=== PATIENT | male | born 1970 | race Caucasian/White ===

== ENCOUNTER 2019-04-03 09:42 | Day surgery (SDC) | payer MEDICARE, MEDICAID ==
[~2019-04-03 09:42] MED LIST: Lactated Ringers 1,000 ML IV SCH; Sodium Chloride 0.9% 10 ML Syringe FLUSH PRN
[2019-04-03] MEDS ORDERED: Propofol 200 MG/20 ML SDV ONE (10:59)
[2019-04-03] MEDS ORDERED: fentaNYL 100 MCG/2 ML SDV ONE (11:00)
[2019-04-03] MEDS ORDERED: ePHEDrine 50 MG/ML SDV ONE (12:19)
--- NOTE | 2019-04-03 15:15 | OR ---
PREOPERATIVE DIAGNOSIS: Screening colonoscopy. POSTOPERATIVE DIAGNOSIS: Normal colonoscopic exam with long tortuous colon. PROCEDURE PROPOSED: Total flexible colonoscopy. PROCEDURE DONE: Total flexible colonoscopy. INDICATION: This 48-year-old gentleman referred for screening colonoscopy. He denies any family history of colon pathology and he is not having any worrisome symptoms. TECHNIQUE: The patient was brought to the endoscopy suite, placed in left lateral decubitus position. He was sedated per OIL INSPECTOR with propofol. The flexible video colonoscope was then passed transanally, and under visualization, advanced to the cecum. He had a rather long tortuous colon using the entire length of the colonoscope and requiring multiple attempts to get into the scope position into the cecal area, which was obtained, and an examination then revealed a normal ascending, transverse, descending colon. The sigmoid colon revealed an occasional diverticular orifice and the rectum was normal. There was no evidence of any polyps or colitis or other abnormalities and the scope was then withdrawn. He tolerated the procedure well. FINAL IMPRESSION: 1. Normal colonoscopic exam with long redundant colon. 2. Minimal diverticulosis. PLAN: The patient is reassured. I felt he could wait 10 years before he needs a repeat colonoscopy. SCM: 04/03/2019 13:17:39 MODL: 04/03/2019 15:03:59 /[id number]
== END 2019-04-03 13:40 | disposition home or self-care (01) ==
LOC: VM.SDS 09:42
PROVIDERS: ATTEND Surgery
DX: Z12.11 Encounter for screening for malignant neoplasm of colon (principal); K57.30 Diverticulosis of large intestine without perforation or abscess without bleeding; K21.9 Gastro-esophageal reflux disease without esophagitis; K63.89 Other specified diseases of intestine; I48.0 Paroxysmal atrial fibrillation; E78.00 Pure hypercholesterolemia, unspecified; E78.5 Hyperlipidemia, unspecified; E87.1 Hypo-osmolality and hyponatremia; D64.9 Anemia, unspecified; F01.51 Vascular dementia, unspecified severity, with behavioral disturbance; Z87.891 Personal history of nicotine dependence; Z95.0 Presence of cardiac pacemaker; Z79.899 Other long term (current) drug therapy
CPT/HCPCS: 00812; G0121; J2704; J3010; J7120

== ENCOUNTER 2020-11-23 08:08 | Emergency (ER) | payer MEDICARE, MEDICAID ==
[2020-11-23] MEDS ORDERED: Sodium Chloride 0.9% 10 ML Syringe FLUSH PRN (08:24)
[2020-11-23] MEDS ORDERED: Lactated Ringers 1,000 ML IV SCH (08:30)
[2020-11-23 08:49] LABS: BARBITURATE SCREEN,URINE NEGATIVE (NEGATIVE); BENZODIAZEPINES SCREEN,URINE NEGATIVE (NEGATIVE); EDDP,URINE SCREEN NEGATIVE (NEGATIVE); METHAMPHETAMINE SCREEN, URINE NEGATIVE (NEGATIVE); TCA SCREEN,URINE NEGATIVE (NEGATIVE); THC SCREEN,URINE 50 NG/ML NEGATIVE (NEGATIVE)
[2020-11-23] MEDS ORDERED: Rocuronium 50 MG/5 ML Vial ONE (08:53)
[2020-11-23 08:55] LABS: PTT,PARTIAL THROMBOPLSTIN TIME 29.3 SEC (25.6-32.8)
[2020-11-23 08:56] LABS: ANION GAP 12.2 mmol/L (10-20); CHLORIDE,CL 96 mmol/L (98-107); SODIUM,NA 135 mmol/L (136-145)
--- NOTE | 2020-11-23 09:16 | CR ---
[id number] RAD/RAD Chest PA or AP 1V EXAM: RAD Chest PA or AP 1V INDICATION: RESP ARREST, INTUBATED. COMPARISON: None. DISCUSSION: Endotracheal tube with tip approximately 3 cm above the alexi. Left chest wall cardiac conduction device. Cardiomediastinal silhouette is normal in size and contour. Right perihilar and basilar pulmonary ulcer. No pneumothorax or pleural effusion. IMPRESSION: As above. Jovany Anna DO 11/23/20 0914 Thank you for allowing us to participate in the care of your patient.
--- NOTE | 2020-11-23 10:03 | EDM.PDOC ---
ED HPI GENERAL MEDICAL PROBLEM - General Stated Complaint: CODE Time Seen by Provider: 11/23/20 08:08 Source of Information: Reports: Patient History Limitations: Reports: Altered Mental Status, Respiratory Distress - History of Present Illness INITIAL COMMENTS - FREE TEXT/NARRATIVE: Pt. presents to ER via EMS. 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 Staff states that the patient made a "howling" noise and then collapsed on the floor. The fall was unwitnessed. Pt. was experiencing agonal breathing, and rescue breathing was started. He was actively experiencing grand mal seizure activity. EMS was dispatched. They found the patient to be agonally breathing and was intubated. Pt. was given a total of 12.5mg of valium during transport but was still seizing. Staff states that the patient was up walking around prior to the incident and offered no complaint. Did not complain of headache at that time. Pt. 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 He is on depakote 250mg in the AM and 500mg QHS, as well as trileptal 150mg BID. Staff states that he has not had any seizure activity in the approx. 7 years he has been a resident at the half-way. Onset: Today Onset Date: 11/23/20 Location: Reports: Generalized - Related Data Allergies Allergy/AdvReac Type Severity Reaction Status Date / Time No Known Allergies Allergy Verified 02/06/19 14:46 Home Meds: Home Meds Amiodarone [Cordarone] 200 mg PO DAILY 02/06/19 [History] Divalproex Sodium 250 mg PO ASDIRECTED 02/06/19 [History] Docusate Sodium [Colace] 100 mg PO BID 02/06/19 [History] Famotidine 20 mg PO BID 02/06/19 [History] Lisinopril 10 mg PO DAILY 02/06/19 [History] Multivitamins [Tab-A-Daniella] 1 each PO DAILY 02/06/19 [History] OLANZapine [ZyPREXA] 10 mg PO BEDTIME 02/06/19 [History] OLANZapine [Zyprexa] 15 mg PO 08 02/06/19 [History] Simvastatin 20 mg PO BEDTIME 02/06/19 [History] polyethylene glycoL 3350 [MiraLAX] 17 gm PO DAILY 02/06/19 [History] OXcarbazepine [Trileptal] 150 mg PO BID 04/03/19 [History] Past Medical History HEENT History: Reports: Cataract Other HEENT History: dysphagia. presbyopia. myopia. glaucoma suspect Cardiovascular History: Reports: Afib, High Cholesterol, Pacemaker Gastrointestinal History: Reports: Chronic Constipation, GERD Other Gastrointestinal History: dysphagia Musculoskeletal History: Reports: None Neurological History: Reports: Brain Injury, Head Trauma, Seizure Other Neuro History: traumatic brain injury Other Psychiatric History: former smoker. major neurocognitive disorder as late effect of traumatic brain injury with behavioral disturbancealcoholism. alcoholic dementia Hematologic History: Reports: Anemia Other Hematologic History: hyponatremia - Past Surgical History Cardiovascular Surgical History: Reports: Pacer Male Surgical History: Reports: None Neurological Surgical History: Reports: None Musculoskeletal Surgical History: Reports: None ED ROS GENERAL - Review of Systems Review Of Systems: Unable To Obtain Reason Not Obtained: Unresponsive, intubated. See HPI. ED EXAM, GENERAL - Physical Exam Exam: See Below Exam Limited By: No Limitations General Appearance: Other (Unresponsive.) Eye Exam: Bilateral Eye: PERRL (3 mm, very sluggish reaction) Throat/Mouth: Normal Lips, Normal Teeth, Other (Intubated) Head: Normocephalic, Other (No obvious trauma noted ) Neck: Normal Inspection, Supple Respiratory/Chest: Lungs Clear, Other (Intubated, ventilated) Cardiovascular: Normal Peripheral Pulses, Regular Rate, Rhythm, No Edema, No JVD Peripheral Pulses: 4+: Carotid (L), Radial (L), Posterior Tibial (R) GI/Abdominal: Soft, No Distention, No Mass (Male) Exam: Normal Inspection, Circumcised Rectal (Males) Exam: Deferred Extremities: Normal Inspection, Normal Range of Motion, Non-Tender, No Pedal Edema, Normal Capillary Refill Neurological: Unresponsive Skin Exam: Warm, Dry, Intact #1 Interpretation Rhythm: NSR [place]: Normal P-Wave: Present QRS: Normal ST-T: Normal QT: Normal Course - Orders/Labs/Meds Orders: Active Orders 24 hr Category Date Time Status EKG Documentation Completion [RC] STAT Care 11/23/20 08:25 Active Cervical Spine wo Cont [CT] Stat Exams 11/23/20 08:50 Ordered Head wo Cont [CT] Stat Exams 11/23/20 08:25 Ordered ABG [BLOOD GAS ARTERIAL] [BG] Stat Lab 11/23/20 09:22 Ordered CULTURE BLOOD [BC] Stat Lab 11/23/20 09:34 Received CULTURE BLOOD [BC] Stat Lab 11/23/20 09:38 Received Lactated Ringers [Ringers, Lactated] 1,000 ml Med 11/23/20 08:30 Active IV ASDIRECTED Sodium Chloride 0.9% [Saline Flush] Med 11/23/20 08:24 Active 10 ml FLUSH ASDIRECTED PRN Blood Culture x2 Reflex Set [OM.PC] Stat Oth 11/23/20 08:26 Ordered Peripheral IV Insertion Adult [OM.PC] Routine Oth 11/23/20 08:26 Ordered Medication Orders Lactated Ringer's (Ringers, Lactated) 1,000 mls @ 150 mls/hr IV ASDIRECTED LORNA Sodium Chloride (Saline Flush) 10 ml FLUSH ASDIRECTED PRN PRN Reason: Keep Vein Open Labs: Laboratory Tests 11/23/20 11/23/20 11/23/20 Range/Units 08:10 08:14 08:14 WBC 10.2 H (4.0-10.0) x10^3/uL RBC 3.54 L (4.5-6.0) x10^6/uL Hgb 11.5 L (14.0-18.0) g/dL Hct 33.0 L (40.0-52.0) % MCV 93.2 H (78.0-93.0) fL MCH 32.5 H (26.0-32.0) pg MCHC 34.8 (32.0-36.0) g/dL RDW Coeff of Elder 14.9 (10.0-15.0) % Plt Count 143 (130-400) x10^3/uL Neut % (Auto) 80.5 H (50.0-80.0) % Lymph % (Auto) 12.3 L (25.0-50.0) % [place] % (Auto) 6.3 (2.0-11.0) % Eos % (Auto) 0.8 (0.0-4.0) % Baso % (Auto) 0.1 L (0.2-1.2) % PT 10.3 (9.5-12.3) SEC INR 0.9 L (2.0-3.5) APTT 29.3 (25.6-32.8) SEC D-Dimer, Quantitative 9.12 H (<=0.58) mg/LFEU Sodium (136-145) mmol/L Potassium (3.5-5.1) mmol/L Chloride (98-107) mmol/L Carbon Dioxide (21-32) mmol/L Anion Gap (10-20) mmol/L BUN (7-18) mg/dL Creatinine (0.70-1.30) mg/dL Est Cr Clr Drug Dosing Estimated GFR (MDRD) Glucose (74-106) mg/dL POC Glucose 109 H (74-106) mg/dL Lactic Acid (0.4-2.0) mmol/L Calcium (8.5-10.1) mg/dL Corrected Calcium (8.5-10.1) mg/dL Magnesium (1.8-2.4) mg/dL Total Bilirubin (0.2-1.0) mg/dL AST (15-37) U/L ALT (16-63) U/L Alkaline Phosphatase (46-116) U/L POC Troponin I (0.00-0.08) ng/mL C-Reactive Protein (<=0.9) mg/dL Total Protein (6.4-8.2) g/dL Albumin (3.4-5.0) g/dL Globulin Albumin/Globulin Ratio TSH, Ultra Sensitive (0.358-3.74) uIU/mL Urine Color (YELLOW) Urine Appearance (CLEAR) Urine pH (5.0-8.0) Ur Specific [place] Urine Protein (NEGATIVE) mg/dL Urine Glucose (UA) (NEGATIVE) mg/dL Urine Ketones (NEGATIVE) mg/dL Urine Occult Blood (NEGATIVE) Urine Nitrite (NEGATIVE) Urine Bilirubin (NEGATIVE) Urine Urobilinogen (0.2) EU/dL Ur Leukocyte Esterase (NEGATIVE) Urine Opiates Screen (NEAGTIVE) Ur Buprenorphine Scrn (NEGATIVE) Ur Oxycodone Screen (NEGATIVE) Ur EDDP (Meth Metab) (NEGATIVE) Urine Methadone Screen (NEGATIVE) Ur Barbiturates Screen (NEGATIVE) Ur Tricyclics Screen (NEGATIVE) Ur Phencyclidine Scrn (NEGATIVE) Ur Amphetamine Screen (NEGATIVE) U Methamphetamines Scrn (NEGATIVE) Urine MDMA Screen (NEGATIVE) U Benzodiazepines Scrn (NEGATIVE) U Cocaine Metab Screen (NEGATIVE) U Marijuana (THC) Screen (NEGATIVE) Ethyl Alcohol (0-3) mg/dL SARS CoV-2 RNA Rapid [place] (NEGATIVE) 11/23/20 11/23/20 11/23/20 Range/Units 08:14 08:14 08:17 WBC (4.0-10.0) x10^3/uL RBC (4.5-6.0) x10^6/uL Hgb (14.0-18.0) g/dL Hct (40.0-52.0) % MCV (78.0-93.0) fL MCH (26.0-32.0) pg MCHC (32.0-36.0) g/dL RDW Coeff of Elder (10.0-15.0) % Plt Count (130-400) x10^3/uL Neut % (Auto) (50.0-80.0) % Lymph % (Auto) (25.0-50.0) % [place] % (Auto) (2.0-11.0) % Eos % (Auto) (0.0-4.0) % Baso % (Auto) (0.2-1.2) % PT (9.5-12.3) SEC INR (2.0-3.5) APTT (25.6-32.8) SEC D-Dimer, Quantitative (<=0.58) mg/LFEU Sodium 135 L (136-145) mmol/L Potassium 4.2 (3.5-5.1) mmol/L Chloride 96 L (98-107) mmol/L Carbon Dioxide 31 (21-32) mmol/L Anion Gap 12.2 (10-20) mmol/L BUN 16 (7-18) mg/dL Creatinine 0.8 (0.70-1.30) mg/dL Est Cr Clr Drug Dosing TNP Estimated GFR (MDRD) > 60 Glucose 109 H (74-106) mg/dL POC Glucose (74-106) mg/dL Lactic Acid 4.0 H* (0.4-2.0) mmol/L Calcium 9.4 (8.5-10.1) mg/dL Corrected Calcium 9.80 (8.5-10.1) mg/dL Magnesium 1.8 (1.8-2.4) mg/dL Total Bilirubin 0.4 (0.2-1.0) mg/dL AST 35 (15-37) U/L ALT 47 (16-63) U/L Alkaline Phosphatase 132 H (46-116) U/L POC Troponin I 0.00 (0.00-0.08) ng/mL C-Reactive Protein 8.7 H (<=0.9) mg/dL Total Protein 7.7 (6.4-8.2) g/dL Albumin 3.5 (3.4-5.0) g/dL Globulin 4.2 Albumin/Globulin Ratio 0.83 TSH, Ultra Sensitive 0.905 (0.358-3.74) uIU/mL Urine Color (YELLOW) Urine Appearance (CLEAR) Urine pH (5.0-8.0) Ur Specific [place] Urine Protein (NEGATIVE) mg/dL Urine Glucose (UA) (NEGATIVE) mg/dL Urine Ketones (NEGATIVE) mg/dL Urine Occult Blood (NEGATIVE) Urine Nitrite (NEGATIVE) Urine Bilirubin (NEGATIVE) Urine Urobilinogen (0.2) EU/dL Ur Leukocyte Esterase (NEGATIVE) Urine Opiates Screen (NEAGTIVE) Ur Buprenorphine Scrn (NEGATIVE) Ur Oxycodone Screen (NEGATIVE) Ur EDDP (Meth Metab) (NEGATIVE) Urine Methadone Screen (NEGATIVE) Ur Barbiturates Screen (NEGATIVE) Ur Tricyclics Screen (NEGATIVE) Ur Phencyclidine Scrn (NEGATIVE) Ur Amphetamine Screen (NEGATIVE) U Methamphetamines Scrn (NEGATIVE) Urine MDMA Screen (NEGATIVE) U Benzodiazepines Scrn (NEGATIVE) U Cocaine Metab Screen (NEGATIVE) U Marijuana (THC) Screen (NEGATIVE) Ethyl Alcohol < 3 (0-3) mg/dL SARS CoV-2 RNA Rapid [place] (NEGATIVE) 11/23/20 11/23/20 11/23/20 Range/Units 08:27 08:27 08:31 WBC (4.0-10.0) x10^3/uL RBC (4.5-6.0) x10^6/uL Hgb (14.0-18.0) g/dL Hct (40.0-52.0) % MCV (78.0-93.0) fL MCH (26.0-32.0) pg MCHC (32.0-36.0) g/dL RDW Coeff of Elder (10.0-15.0) % Plt Count (130-400) x10^3/uL Neut % (Auto) (50.0-80.0) % Lymph % (Auto) (25.0-50.0) % [place] % (Auto) (2.0-11.0) % Eos % (Auto) (0.0-4.0) % Baso % (Auto) (0.2-1.2) % PT (9.5-12.3) SEC INR (2.0-3.5) APTT (25.6-32.8) SEC D-Dimer, Quantitative (<=0.58) mg/LFEU Sodium (136-145) mmol/L Potassium (3.5-5.1) mmol/L Chloride (98-107) mmol/L Carbon Dioxide (21-32) mmol/L Anion Gap (10-20) mmol/L BUN (7-18) mg/dL Creatinine (0.70-1.30) mg/dL Est Cr Clr Drug Dosing Estimated GFR (MDRD) Glucose (74-106) mg/dL POC Glucose (74-106) mg/dL Lactic Acid (0.4-2.0) mmol/L Calcium (8.5-10.1) mg/dL Corrected Calcium (8.5-10.1) mg/dL Magnesium (1.8-2.4) mg/dL Total Bilirubin (0.2-1.0) mg/dL AST (15-37) U/L ALT (16-63) U/L Alkaline Phosphatase (46-116) U/L POC Troponin I (0.00-0.08) ng/mL C-Reactive Protein (<=0.9) mg/dL Total Protein (6.4-8.2) g/dL Albumin (3.4-5.0) g/dL Globulin Albumin/Globulin Ratio TSH, Ultra Sensitive (0.358-3.74) uIU/mL Urine Color Light yellow (YELLOW) Urine Appearance Slightly cloudy H (CLEAR) Urine pH 7.5 (5.0-8.0) Ur Specific [place] 1.020 Urine Protein Negative (NEGATIVE) mg/dL Urine Glucose (UA) Negative (NEGATIVE) mg/dL Urine Ketones Negative (NEGATIVE) mg/dL Urine Occult Blood Negative (NEGATIVE) Urine Nitrite Negative (NEGATIVE) Urine Bilirubin Negative (NEGATIVE) Urine Urobilinogen 0.2 (0.2) EU/dL Ur Leukocyte Esterase Negative (NEGATIVE) Urine Opiates Screen Negative (NEAGTIVE) Ur Buprenorphine Scrn Negative (NEGATIVE) Ur Oxycodone Screen Negative (NEGATIVE) Ur EDDP (Meth Metab) Negative (NEGATIVE) Urine Methadone Screen Negative (NEGATIVE) Ur Barbiturates Screen Negative (NEGATIVE) Ur Tricyclics Screen Negative (NEGATIVE) Ur Phencyclidine Scrn Negative (NEGATIVE) Ur Amphetamine Screen Negative (NEGATIVE) U Methamphetamines Scrn Negative (NEGATIVE) Urine MDMA Screen Negative (NEGATIVE) U Benzodiazepines Scrn Negative (NEGATIVE) U Cocaine Metab Screen Negative (NEGATIVE) U Marijuana (THC) Screen Negative (NEGATIVE) Ethyl Alcohol (0-3) mg/dL SARS CoV-2 RNA Rapid [place] Negative (NEGATIVE) Meds: Medications Generic Name Dose Route Start Last Admin Trade Name Freq PRN Reason Stop Dose Admin Lactated Ringer's 1,000 mls @ 150 mls/hr 11/23/20 08:30 Ringers, Lactated IV ASDIRECTED LORNA Sodium Chloride 10 ml 11/23/20 08:24 Saline Flush FLUSH ASDIRECTED PRN Keep Vein Open Discontinued Medications Generic Name Dose Route Start Last Admin Trade Name Freq PRN Reason Stop Dose Admin Fosphenytoin Sodium 1,000 mg. 120 mls @ 600 mls/hr 11/23/20 08:27 pe/ Sodium Chloride IV 11/23/20 08:38 ONETIME ONE Rocuronium [place] Confirm 11/23/20 08:53 Zemuron Administered 11/23/20 08:54 Dose 50 mg .ROUTE .[facility] ONE - Radiology Interpretation Free Text/Narrative:: Chest ET tube tip approx. 3 cm above alexi. No obvious infiltrate or pneumothorax. CT brain showed no acute findings, other than encephalomalacia from previous head injury. and c-spine obtained. No acute pathology noted. Images pushed to [place] [facility]. See faxed copies of radiology reports. - Re-Assessments/Exams Free Text/Narrative Re-Assessment/Exam: Pt. was transported to ER via EMS. He presents to ER intubated with BVM ventilation. ETCO2 [id number] on arrival. Bilateral breath sounds noted when checked intermittently during his stay in ER. ET tube in adequate position. Pt. was given 7.5mg valium IV on arrival to ED. Total dosage of valium was 20mg IV. Pt. was loaded with fosphenytoin 1000mg which did stop his seizure activity. He was given rocuronium 75mg IV. Will continue with IV versed for sedation. Vent settings tidal volume 500, RR 12. Initial FiO2 100%. He was satting in the 99%-100% range and FiO2 was decreased to 70% and will be titrated. UDS and UA are negative. Departure - Departure Time of Disposition: 10:23 Disposition: DC/Tfer to Acute Hospital 02 Clinical Impression: Status epilepticus, Respiratory distress - Discharge Information Referrals: Liss Ho MD [Primary Care Provider] - Forms: Interfacility Transfer EMTALA - Problem List Review Problem List Initiated/Reviewed/Updated: Yes - My Orders Last 24 Hours: My Active Orders 11/23/20 08:24 Sodium Chloride 0.9% [Saline Flush] 10 ml FLUSH ASDIRECTED PRN 11/23/20 08:25 EKG Documentation Completion [RC] STAT Head wo Cont [CT] Stat 11/23/20 08:26 Blood Culture x2 Reflex Set [OM.PC] Stat Peripheral IV Insertion Adult [OM.PC] Routine 11/23/20 08:30 Lactated Ringers [Ringers, Lactated] 1,000 ml IV ASDIRECTED 11/23/20 08:50 Cervical Spine wo Cont [CT] Stat 11/23/20 09:22 ABG [BLOOD GAS ARTERIAL] [BG] Stat 11/23/20 09:34 CULTURE BLOOD [BC] Stat 11/23/20 09:38 CULTURE BLOOD [BC] Stat - Assessment/Plan Last 24 Hours: My Active Orders 11/23/20 08:24 Sodium Chloride 0.9% [Saline Flush] 10 ml FLUSH ASDIRECTED PRN 11/23/20 08:25 EKG Documentation Completion [RC] STAT Head wo Cont [CT] Stat 11/23/20 08:26 Blood Culture x2 Reflex Set [OM.PC] Stat Peripheral IV Insertion Adult [OM.PC] Routine 11/23/20 08:30 Lactated Ringers [Ringers, Lactated] 1,000 ml IV ASDIRECTED 11/23/20 08:50 Cervical Spine wo Cont [CT] Stat 11/23/20 09:22 ABG [BLOOD GAS ARTERIAL] [BG] Stat 11/23/20 09:34 CULTURE BLOOD [BC] Stat 11/23/20 09:38 CULTURE BLOOD [BC] Stat Plan: Discussed findings with pt. caregivers. He is followed by [facility] in [place], [place]. I contacted them, and they affirm that the patient is a code 1. Contact number is [phone]. Pt. will be transported via ALS ground ambulance. Advised to use IV versed for further need for sedation/seizure activity.
[2020-11-23 10:04] LABS: PCO2 ARTERIAL,POC 60 mmHg (35-48)
--- NOTE | 2020-11-23 10:05 | CT ---
[id number] CT/CT Head WO IV EXAM: NONCONTRAST HEAD CT INDICATION: RESP ARREST,SEIZURE. COMPARISON: February 13, 2020. DISCUSSION: Previous right craniotomy. Areas of encephalomalacia in the left frontal and temporal lobes are stable. Stable mild generalized atrophy and mild chronic small vessel ischemic changes. No mass effect, midline shift, acute hemorrhage, acute territorial infarct or extra-axial collection is identified. No evidence of aggressive sinusitis. The orbits are unremarkable. IMPRESSION: 1. No acute intracranial findings. 2. Stable encephalomalacia left frontal and temporal lobes. Jovany Anna DO 11/23/20 1004 Thank you for allowing us to participate in the care of your patient.
--- NOTE | 2020-11-23 10:20 | CT ---
[id number] CT/CT Cervical Spine WO IV Exam: CT Cervical Spine WO IV CLINICAL DATA: FALL. COMPARISON: None. FINDINGS: No fracture or subluxation is seen. The C1-C2 articulation is unremarkable. The prevertebral soft tissues are within normal limits. Multilevel degenerative changes of the cervical spine most pronounced at C7-T1. Endotracheal tube in place. IMPRESSION: NO ACUTE FRACTURE OR SUBLUXATION. Jovany Anna DO 11/23/20 1019 Thank you for allowing us to participate in the care of your patient.
[2020-11-23] MEDS ORDERED: Sodium Chloride 0.9% 1,000 ML IV SCH (12:00)
== END 2020-11-23 10:20 | disposition short-term general hospital (02) ==
LOC: VM.ED 08:08
DX: G40.901 Epilepsy, unspecified, not intractable, with status epilepticus (principal); I48.91 Unspecified atrial fibrillation; E78.00 Pure hypercholesterolemia, unspecified; K21.9 Gastro-esophageal reflux disease without esophagitis; Z87.891 Personal history of nicotine dependence; Z79.899 Other long term (current) drug therapy; Z20.828 Contact with and (suspected) exposure to other viral communicable diseases
CPT/HCPCS: 36415; 36600; 51702; 70450; 71045; 72125; 80053; 80305-QW; 80307; 81003; 82803; 82962; 83605; 83735; 84443; 84484; 85025; 85379; 85610; 85730; 86140; 87040; 93005; 93010; 96365; 96375; 99284; 99285-25; Q2009; U0002